=== PATIENT | male | born 1975 | race Caucasian/White ===

== ENCOUNTER 2018-04-15 13:05 | Emergency (ER) | payer BC, OTHER ==
[~2018-04-15] VITALS: Ht 180.3 cm; Wt 93.8 kg
[2018-04-15] MEDS ORDERED: LIDOCAINE-MPF 2% ,5ML ONE (13:20)
[2018-04-15] MEDS ORDERED: DIPH,PERTUSS(ACELL),TET VAC/PF 0.5 ML IM-VACC ONE ×2 (13:21→13:30)
[2018-04-15] MEDS ORDERED: LIDOCAINE 1%-EPI 1:100K, 20ML INFIL ONE (13:30)
[2018-04-15] MEDS ORDERED: PLEASE ENTER ALLERGIES MC SCH (13:30)
[2018-04-15] MEDS ORDERED: LIDOCAINE-MPF 1%, 5ML ONE (13:35)
[2018-04-15 15:17] VITALS: BP 123/84
== END 2018-04-15 15:18 | disposition home or self-care (01) ==
LOC: ED 15:00
DX: S81.021A Laceration with foreign body, right knee, initial encounter (principal); V22.4XXA Motorcycle driver injured in collision with two- or three-wheeled motor vehicle in traffic accident, initial encounter; Y93.55 Activity, bike riding; Y92.410 Unspecified street and highway as the place of occurrence of the external cause; Y99.8 Other external cause status
CPT/HCPCS: 13121; 73130; 73564; 90471; 90715; 99285; J3490